=== PATIENT | male | born 2000 | race Caucasian/White ===

== ENCOUNTER 2025-02-10 07:02 | Emergency (ER) | payer OTHER ==
[2025-02-10 07:12] VITALS: BP 118/80; PULSE 64; RESP 18; TEMP 97.7; BMI 25.8
[2025-02-10] MEDS: KETOROLAC TROMETHAMINE 30 MG/1 ML VIAL IM ONE (08:14)
[2025-02-10] MEDS ORDERED: KETOROLAC TROMETHAMINE 30 MG/1 ML VIAL ONE (08:14)
[2025-02-10 09:03] LABS: ABSOLUTE IMMATURE GRANULOCYTES 0.01 x10^3/uL (0.0-0.031); BASOPHILS # 0.05 x10^3/uL (0.01-0.08); EOSINOPHIL % 0.7 % (0.8-7.0); EOSINOPHILS # 0.04 x10^3/uL (0.04-0.54); MCHC 34.2 g/dl (32.3-36.5); MEAN CELL VOLUME 85.6 fl (79.0-92.2); MEAN PLT VOLUME 10.4 fl (9.4-12.4); MONOCYTE # 0.42 x10^3/uL (0.30-0.82); MONOCYTE % 7.0 % (5.3-12.2); RDW 11.6 % (11.9-15.3)
[2025-02-10] MEDS ORDERED: ACETAMINOPHEN 500 MG TABLET (FP) ONE (09:56)
[2025-02-10] MEDS: ACETAMINOPHEN 500 MG TABLET (FP) PO ONE (09:59)
[2025-02-10 10:30] LABS: GLUCOSE,RANDOM 87.0 mg/dL (74-106); TOT PROT 7.5 g/dl (6.4-8.2)
[2025-02-10 10:31] LABS: CO2 23.0 mmol/L (21-32)
[2025-02-10 10:33] LABS: ALK PHOS 38.0 U/L (40-150)
[2025-02-10 10:35] LABS: SGOT/AST 23.0 U/L (5-34); SGPT/ALT 18.0 U/L (0-55)
[2025-02-10 10:36] LABS: CREATININE 1.08 mg/dL (0.55-1.3)
[2025-02-10 10:36] LABS: HCV DIAGNOSTIC IN-HOUSE W/RFLX NON-REACTIVE (NONREACTIVE); HIV INTERPRETATION NEGATIVE (NEGATIVE)
== END 2025-02-10 12:56 | disposition home or self-care (01) ==
LOC: JER 07:02 → JERFT 07:02
PROC: 3E0233Z Introduction of Anti-inflammatory into Muscle, Percutaneous Approach (ICD-10-PCS; principal; 2025-02-10)
DX: M54.2 Cervicalgia (principal); M25.512 Pain in left shoulder
CPT/HCPCS: 36415; 70491-TC; 72040-TC; 80053; 85025; 86803; 87389; 99285-25